=== PATIENT | female | born 1955 | race Caucasian/White ===

== ENCOUNTER 2023-11-24 09:34 | Emergency (ER) | payer MEDICARE, SELFPAY ==
--- NOTE | 2023-11-24 09:44 | ED.FEMALEGU ---
HPI - Female Genitourinary General Chief complaint: Urogenital-Female Stated complaint: uti symptoms Time Seen by Provider: 11/24/23 10:00 Source: patient and RN notes reviewed Mode of arrival: ambulatory Limitations: no limitations History of Present Illness HPI Narrative: 68-year-old female presents with concern for 3-4 day history of urinary urgency, dysuria, foul-smelling urine, vaginal itching. Reports she has a history of urinary tract infections. She reports some headache last night. She reports mild nausea without vomiting. She denies back pain, abdominal pain, fever, chills sweats. MD elicited complaint: UTI Related Data Home Medications Medication Instructions Recorded Confirmed amitriptyline 25 mg tablet mg 11/24/23 atorvastatin 40 mg tablet mg 11/24/23 carvedilol 6.25 mg tablet mg 11/24/23 cyclosporine 0.09 % eye drops in a 1 drp EACH EYE Q12H 11/24/23 11/24/23 dropperette (Cequa) denosumab 60 mg/mL subcutaneous mg subcut 11/24/23 syringe (Prolia) flecainide 50 mg tablet mg 11/24/23 levothyroxine 125 mcg tablet mcg 11/24/23 paroxetine HCl 10 mg tablet mg PO 11/24/23 rivaroxaban 20 mg tablet (Xarelto) mg 11/24/23 Allergies Allergy/AdvReac Type Severity Reaction Status Date / Time erythromycin base Allergy Severe RASH Verified 11/24/23 09:54 Penicillins Allergy Severe RASH, Verified 11/24/23 09:54 ITCHEY CHILD Sulfa (Sulfonamide Allergy Severe RASH-- Verified 11/24/23 09:54 Antibiotics) CHILD tetracycline Allergy Severe RASH Verified 11/24/23 09:54 clindamycin AdvReac Severe DIARRHEA Verified 11/24/23 09:54 S/P TREATMENT poison sue extract AdvReac Unknown Skin Verified 11/24/23 09:54 Reaction nitrofurantoin AdvReac Nausea Verified 11/24/23 10:04 [From Macrobid] Review of Systems Review of Systems: CONSTITUTIONAL: Denies malaise, chills, sweats, or fever. CARDIOVASCULAR: Denies chest pain, palpitations, or edema. RESPIRATORY: Denies cough or dyspnea. GASTROINTESTINAL: Denies abdominal pain, nausea, vomiting, diarrhea GENITOURINARY: Reports dysuria, frequency, urgency, suprapubic pressure. Denies flank pain or hematuria. SKIN: Denies rash or itching. MUSCULOSKELETAL: Denies back pain or myalgia. All systems reviewed & are unremarkable except as noted in HPI and below PMFSH Comments At time of signature, agree with nursing past medical, surgical, social and family history. There is no relevant family history pertinent to the presenting complaint Exam Narrative: GENERAL: Well-appearing, well-nourished, and in no acute distress. HEAD: Normocephalic. EYES: PERRLA, conjunctivae clear. NECK: Supple. No lymphadenopathy CHEST: Clear to auscultation. No respiratory distress. HEART: Regular rate and rhythm. ABDOMEN: Soft, nontender upon palpation, nondistended, normal active bowel sounds, no palpable or pulsatile masses, no guarding. No CVA tenderness SKIN: Warm, dry, no rash. NEURO: Alert and oriented x3. PSYCH: Normal mood and affect Course Course Emergency Course: Patient is aware of diagnosis, understands and agrees to treatment plan. Anticipatory guidance given. Patient agrees to follow-up as directed and is aware of reasons to seek care at the emergency department. Portions of this record may have been created with voice recognition software Level of Care: Express Care Visit Vital Signs Vital signs: Reviewed. MDM - Female Genitourinary MDM Narrative Medical decision making narrative: Exam findings and UA show no acute concerns or changes; patient is non-toxic appearing and is in no distress. Patient is appropriate for outpatient treatment and follow-up. Differential Diagnosis Differential diagnosis: Likely urinary tract infection and cystitis Critical Care Time Critical Care Time Critical Care Time: No Discharge Plan Discharge Clinical Impression: Urinary tract infection Patient Disposition: Home, Self-Care
[2023-11-24 09:50] VITALS: BP 101/63; PULSE 64; RESP 18; TEMP 36.5; O2SAT 100
[2023-11-24 09:56] VITALS: BP 101/63; PULSE 64; RESP 18; TEMP 36.5; O2SAT 100
[2023-11-24 09:59] LABS: EDUAAPPEAR Cloudy; EDUABILI Negative; EDUABLOOD 2+; EDUACOLOR1 Yellow; EDUAGLUCOSE Negative; EDUAKETONE Negative; EDUALEUKO 3+; EDUANITRATE Positive; EDUAPH 6.5; EDUAPROTEIN Negative; EDUASPGRAVITY 1.015; EDUAUROBILI 0.2
== END 2023-11-24 10:12 | disposition home or self-care (01) ==
PROVIDERS: Emergency Provider Nurse Practitioner
DX: N39.0 Urinary tract infection, site not specified (principal); E78.00 Pure hypercholesterolemia, unspecified; M85.80 Other specified disorders of bone density and structure, unspecified site; E03.9 Hypothyroidism, unspecified
CPT/HCPCS: 81003; 87077; 87086; 87088; 87186; 99213; G0463